=== PATIENT | male | born 1955 | race Caucasian/White ===

== ENCOUNTER 2017-10-22 12:13 | Inpatient (IN) | payer OTHER ==
[~2017-10-22] VITALS: Ht 175.3 cm; Wt 85.7 kg
[~2017-10-22 12:13] MED LIST: ASPI81TA11 PO; DEPA250T2 OR; FLUT1SPR9; GABA300C3 PO; METO25CR PO; PRED50TA PO
[2017-10-22 12:19] VITALS: BP 143/74; PULSE 81; RESP 18; TEMP 98.4; O2SAT 97
--- NOTE | 2017-10-22 12:51 | PD ---
HPI Chief Complaint: Head Injury Time Seen by Provider: 12:27 Travel History International Travel<30 days: No Contact w/Intl Traveler<30days: No Traveled to known affect area: No History of Present Illness HPI 62yo M with PMH of epilepsy on medication but does not know he is on here with multiple complaints. Pt is mainly here because he fell while trying to sit on a chair and hit his head at 7am today. Said he had LOC. Also has bleeding from left external ear. Pt said he has been feeling dizzy for a few days and it is more room spinning. Also said he has pain in both knees for over a week and his legs just gives out because of his pain and he just falls. Denies any fever, chest pain, sob, n/v, abdominal pain, back pain, focal weakness or numbness. PFSH Past Medical History Diminished Hearing: No Hypertension: Yes Immunizations Current: Yes Seizures: Yes (had one "long time ago" on meds) ?: Not Social History Alcohol Use: No Tobacco Use: Yes (2-3 PPD) Substance Use: No Allergies-Medications (Allergen,Severity, Reaction): Coded Allergies: No Known Allergies (Verified Allergy, Unknown, 10/22/17) Reported Meds & Prescriptions Reported Meds & Active Scripts Active Reported Aspirin Low Dose (Aspirin) 81 Mg Chew 81 Mg PO DAILY Divalproex DR (Divalproex Sodium) 250 Mg Tabdr 250 Mg PO TID Gabapentin 400 Mg Cap 400 Cap PO TID Metoprolol Tartrate 50 Mg Tab 50 Mg PO DAILY Review of Systems Except as stated in HPI: all other systems reviewed are Neg Physical Exam Narrative GENERAL: 62yo M not in distress. SKIN: Focused skin assessment warm/dry. HEAD: Atraumatic. Normocephalic. EYES: Pupils equal and round at 3mm bilaterally. EOMI. ENT: No hemotympanum. Left ear: +3cm laceration in left pinna. It is very superficial and well approximated. NECK: No cervical spine ttp. CARDIOVASCULAR: Regular rate and rhythm. No murmur appreciated. RESPIRATORY: No accessory muscle use. Clear to auscultation. GASTROINTESTINAL: Abdomen soft, non-tender, nondistended. MUSCULOSKELETAL: Left knee:FROM in knee. Sensation intact. Distal pulses intact. Right knee: FROM in knee. Sensation intact. Distal pulses intact. NEUROLOGICAL: AAOx2. No obvious cranial nerve deficits. Motor grossly within normal limits in all extremities. Sensation equal bilaterally. Normal speech. Data Data Last Documented VS Vital Signs Date Time Temp Pulse Resp B/P (MAP) Pulse Ox O2 Delivery O2 Flow Rate FiO2 10/22/17 17:20 16 10/22/17 15:45 70 132/78 (96) 98 Room Air 10/22/17 12:[address] Brain W/O Iv Contrast(Rout) (10/22/17 ) Complete Blood Count With Diff (10/22/17 12:40) Basic Metabolic Panel (Bmp) (10/22/17 12:40) Prothrombin Time / Inr (Pt) (10/22/17 12:40) Act Partial Throm Time (Ptt) (10/22/17 12:40) Electrocardiogram (10/22/17 ) Knee, Ltd (1 Or 2vws) (10/22/17 ) Knee, Ltd (1 Or 2vws) (10/22/17 ) Troponin I (10/22/17 12:51) Meclizine (Antivert) (10/22/17 13:00) Morphine Inj (Morphine Inj) (10/22/17 13:00) Lidocaine 1% Inj (Xylocaine 1% Inj) (10/22/17 13:00) Valproic Acid (Depakene) (10/22/17 12:57) Sodium Chlor 0.9% 1000 Ml Inj (Ns 1000 M (10/22/17 14:00) Mri Brain W&W/O Contrast (10/22/17 ) Gadodiamide Pf Inj (Omniscan Pf Inj) (10/22/17 16:15) Consult Neurology (10/22/17 ) (Hub Use Only)Inp Phy Cons/Ref (10/22/17 ) Urinalysis - C+S If Indicated (10/22/17 18:42) Place In Observation (10/22/17 ) Vital Signs (Adult) Q4H (10/22/17 18:42) Activity Oob With Assistance (10/22/17 18:42) Diet Regular Basic (10/22/17 Dinner) Sodium Chloride 0.9% Flush (Ns Flush) (10/22/17 18:45) Sodium Chloride 0.9% Flush (Ns Flush) (10/22/17 21:00) Acetaminophen (Tylenol) (10/22/17 18:45) Ondansetron Inj (Zofran Inj) (10/22/17 18:45) Basic Metabolic Panel (Bmp) (10/23/17 06:00) Complete Blood Count With Diff (10/23/17 06:00) Pt Request For Service (10/22/17 18:42) Naloxone Inj (Narcan Inj) (10/22/17 18:45) Osmolality, Urine (10/22/17 18:42) Osmolality,Serum (10/22/17 18:42) Sodium, Random Urine (10/22/17 18:42) Chest, Pa & Lat (10/22/17 ) Admit Order (Ed Use Only) (10/22/17 18:46) Labs Laboratory Tests Test 10/22/17 08:20 10/22/17 13:00 10/22/17 13:30 Troponin I 0.02 NG/ML White Blood Count 11.9 TH/MM3 Red Blood Count 4.94 MIL/MM3 Hemoglobin 15.4 GM/DL Hematocrit 45.8 % Mean Corpuscular Volume 92.6 FL Mean Corpuscular Hemoglobin 31.1 PG Mean Corpuscular Hemoglobin Concent 33.6 % Red Cell Distribution Width 13.6 % Platelet Count 242 TH/MM3 Mean Platelet Volume 7.2 FL Neutrophils (%) (Auto) 83.0 % Lymphocytes (%) (Auto) 11.7 % Monocytes (%) (Auto) 4.0 % Eosinophils (%) (Auto) 0.8 % Basophils (%) (Auto) 0.5 % Neutrophils # (Auto) 9.8 TH/MM3 Lymphocytes # (Auto) 1.4 TH/MM3 Monocytes # (Auto) 0.5 TH/MM3 Eosinophils # (Auto) 0.1 TH/MM3 Basophils # (Auto) 0.1 TH/MM3 CBC Comment DIFF FINAL Differential Comment Erythrocyte Sedimentation Rate 1 mm/hr Prothrombin Time 10.4 SEC Prothromb Time International Ratio 1.0 RATIO Activated Partial Thromboplast Time 25.7 SEC Blood Urea Nitrogen 3 MG/DL Creatinine 1.00 MG/DL Random Glucose 95 MG/DL Calcium Level 8.9 MG/DL Sodium Level 129 MEQ/L Potassium Level 4.7 MEQ/L Chloride Level 94 MEQ/L Carbon Dioxide Level 27.9 MEQ/L Anion Gap 7 MEQ/L Estimat Glomerular Filtration Rate 76 ML/MIN Thyroid Stimulating Hormone 3rd Gen 1.420 uIU/ML Valproic Acid (Depakene) Level 56 MCG/ML MDM Medical Decision Making Medical Screen Exam Complete: Yes Emergency Medical Condition: Yes Interpretation(s) EKG: NSR 78bpm. LAD. TWI aVL. ST depression II, V6. Differential Diagnosis ICH vs. contusion vs. laceration vs. vertigo vs. failure to thrive Narrative Course 62yo M with epilepsy here with c/o bleeding in left ear s/p fall today. Said he hit his head on the chair and had positive LOC. Denies any focal weakness or numbness. Complains of dizziness and bilateral knee pain and his knees giving out on him. Pt's sister arrive and said pt takes depakote and has been having this problem for 1 month now. Said his PMD ordered physical therapy and work up with neurology. Labs reviewed, WBC 11.9. H/H normal. Mild hyponatremia at 129, pt has had similar hyponatremia before. Pt given NS IVF. Troponin negative. Valproic acid therapeutic at 56. CT brain showed no focal or acute intracranial hemorrhage. There is diffuse enlargement of the ventricular system suggestive of hydrocephalus. Normal pressure hydrocephalus would be a consideration. No prior studies to compare. Recommend MRI of brain to further evaluate. I discussed with radiologist Dr. Lopez and suggested MRI brain with and without contrast. Bilateral xray of knee negative. Pt's sister said he seems more forgetful today but normally does not know year so he is AAOx2 normally. MRI brain showed ventricular dilation. No evidence of transependymal fluid migration. Pt has unsteady gait even on his cane and I try to walk him and he is unable to walk unassisted even with his cane. Pt lives by himself and his sister lives close by but she can barely take care of herself. I do not feel that this is a safe discharge and will place a consult for neurology. Left ear laceration well approximated and repair with dermabond. I initially called Dr. Ambrosio from neurology but have not heard back from him yet. I discussed with hospitalist Dr. Green who wanted me to call neurosurgery first to see if pt needs to be transfer. I discussed with Dr. Cardenas from neurosurgery and he said that pt needs a neurology work up first. Pt does not need a METER TECHNICIAN shunt now since there is no transependymal fluid migration. Dr. Ambrosio called back and request that I order MRI cspine and MRI t spine with and without contrast for tomorrow. Also ask that I order B12 level, TSH, T4, sed rate, methylmalonic acid. Critical Care Narrative Aggregate critical care time was 50 minutes. Time to perform other separately billable procedures was not included in the critical care time. My time did not include minutes spent treating any other patients simultaneously or on activities that did not directly contribute to the patient's treatment. The services I provided to this patient were to treat and/or prevent clinically significant deterioration that could result in: cardiovascular collapse or . I provided critical care services requiring my management, as noted below: Chart data review, documentation time, medication orders and management, vital sign assessments/reviewing monitor data, ordering and reviewing lab tests, ordering and interpreting/reviewing x-rays and diagnostic studies, care of the patient and discussion of the patient with the admitting physicians. Procedures Procedure Narrative LACERATION LOCATION: Left ear LENGTH: 3cm NUMBER OF STITCHES/ORESTES: Dermabond. REPAIR: The wound was copiously irrigated and explored without evidence of foreign body, tendon injury or neurovascular injury. The wound was closed using Dermabond. This was a single layer repair. Patient tolerated the procedure well. Diagnosis Primary Impression: Ventricular dilation Admitting Information Admitting Physician Requests: Heaven Hammonds DO Oct 22, 2017 12:50
[2017-10-22] MEDS ORDERED: MECLIZINE HCL 25 MG TAB PO ONE (13:00)
[2017-10-22] MEDS ORDERED: MORPHINE SULFATE 2 MG/ML INJ IV PUSH ONE (13:00)
[2017-10-22] MEDS ORDERED: LIDOCAINE HCL 1% 20 ML VIAL INFIL ONE (13:00)
--- NOTE | 2017-10-22 13:11 | RADRPT ---
EXAM DATE/TIME: 10/22/2017 12:53 [facility] COMPARISON: No previous studies available for comparison. INDICATIONS : Trauma. Fall. Hit head. RADIATION DOSE: 59.74 CTDIvol (mGy) MEDICAL HISTORY : Seizures. Hypertension. SURGICAL HISTORY : None. ENCOUNTER: Initial ACUITY: 1 day PAIN SCALE: 2/10 LOCATION: Left cranial TECHNIQUE: Multiple contiguous axial images were obtained of the head. Using automated exposure control and adj ustment of the mA and/or kV according to patient size, radiation dose was kept as low as reasonably a chievable to obtain optimal diagnostic quality images. DICOM format image data is available electro nically for review and comparison. FINDINGS: CEREBRUM: The ventricles are prominent for age. No evidence of midline shift, mass lesion, hemorrhage or acute infarction. No extra-axial fluid collections are seen. POSTERIOR FOSSA: The cerebellum and brainstem are intact. The 4th ventricle is midline. The cerebellopontine angle i s unremarkable. EXTRACRANIAL: The visualized portion of the orbits is intact. SKULL: The calvaria is intact. No evidence of skull fracture. CONCLUSION: 1. No focal or acute intracranial hemorrhage. 2. There is diffuse enlargement of the ventricular system suggestive of hydrocephalus. Normal pressur e hydrocephalus would be a consideration. There are no prior studies for comparison. Recommend MRI of the brain for further evaluation. Mike Lopez MD on October 22, 2017 at 13:08 Board Certified Radiologist. This report was verified electronically.
--- NOTE | 2017-10-22 13:17 | RADRPT ---
EXAM DATE/TIME: 10/22/2017 12:56 [facility] COMPARISON: No previous studies available for comparison. INDICATIONS : Right knee pain; fall. MEDICAL HISTORY : None. SURGICAL HISTORY : None. ENCOUNTER: Initial ACUITY: 1 day PAIN SCORE: 3/10 LOCATION: Right knee. FINDINGS: Two view examination of the right knee demonstrates no evidence of fracture or dislocation. Bony min eralization is normal. The suprapatellar soft tissues have a normal configuration. There are vascula r calcifications characteristic of PVD. No evidence of joint effusion. CONCLUSION: No acute fracture or joint dislocation. Mike Lopez MD on October 22, 2017 at 13:15 Board Certified Radiologist. This report was verified electronically.
--- NOTE | 2017-10-22 13:18 | RADRPT ---
EXAM DATE/TIME: 10/22/2017 12:56 [facility] COMPARISON: No previous studies available for comparison. INDICATIONS : Left knee pain; fall. MEDICAL HISTORY : None. SURGICAL HISTORY : None. ENCOUNTER: Initial ACUITY: 1 day PAIN SCORE: 3/10 LOCATION: Left knee. FINDINGS: Two view examination of the left knee demonstrates no evidence of fracture or dislocation. Bony mine ralization is normal. The suprapatellar soft tissues have a normal configuration. No evidence of ravindra nt effusion. Vascular calcifications characteristic of PVD. CONCLUSION: No acute fracture or joint dislocation. Mike Lopez MD on October 22, 2017 at 13:16 Board Certified Radiologist. This report was verified electronically.
[2017-10-22 13:40] LABS: AUTOMATED NEUTROPHIL # 9.8 TH/MM3 (1.8-7.7); BASOPHIL # 0.1 TH/MM3 (0-0.2); BASOPHIL % 0.5 % (0.0-2.0); EOSINOPHIL # 0.1 TH/MM3 (0-0.4); EOSINOPHIL % 0.8 % (0.0-4.0); HEMATOCRIT 45.8 % (39.0-51.0); HEMOGLOBIN 15.4 GM/DL (13.0-17.0); LYMPH % 11.7 % (9.0-44.0); LYMPHOCYTE # 1.4 TH/MM3 (1.0-4.8); MEAN CELL VOLUME 92.6 FL (80.0-100.0); MEAN CORPUSCULAR HEMOGLOBIN 31.1 PG (27.0-34.0); MEAN CORPUSCULAR HGB CONC 33.6 % (32.0-36.0); MEAN PLATELET VOLUME 7.2 FL (7.0-11.0); MONOCYTE # 0.5 TH/MM3 (0-0.9); PLATELET COUNT 242 TH/MM3 (150-450); RED BLOOD COUNT 4.94 MIL/MM3 (4.50-5.90); RED CELL DISTRIBUTION WIDTH 13.6 % (11.6-17.2); WHITE BLOOD COUNT 11.9 TH/MM3 (4.0-11.0)
[2017-10-22 13:51] LABS: CALCIUM 8.9 MG/DL (8.5-10.1)
[2017-10-22 13:52] LABS: BICARBONATE 27.9 MEQ/L (21.0-32.0)
[2017-10-22 13:53] LABS: PROTHROMBIN TIME - PATIENT 10.4 SEC (9.8-11.6)
[2017-10-22] MEDS ORDERED: SODIUM CHLOR 0.9% 1000 ML INJ 1,000 ML IV ONE (14:00)
[2017-10-22] MEDS ORDERED: METO50TA PO (14:05)
[2017-10-22] MEDS ORDERED: GABA400C5 PO (14:05)
[2017-10-22] MEDS ORDERED: DIVA250T PO (14:05)
[2017-10-22] MEDS ORDERED: ASPI81CH6 PO (14:19)
[2017-10-22 14:30] VITALS: BP 138/84; PULSE 82; RESP 18; O2SAT 97
[2017-10-22 15:45] VITALS: BP 132/78; PULSE 70; RESP 18; O2SAT 98
[2017-10-22] MEDS ORDERED: GADODIAMIDE PF 287 MG/ML 20 ML VIAL (for RAD MRI) IVCONTRAST ONE (16:15)
--- NOTE | 2017-10-22 17:32 | RADRPT ---
EXAM DATE/TIME: 10/22/2017 15:57 [facility] COMPARISON: CT BRAIN W/O CONTRAST, October 22, 2017, 12:53. INDICATIONS : Hydrocephalus. Trauma fell and hit head. CONTRAST: 18 cc Omniscan (gadodiamide) IV MEDICAL HISTORY : Hypertension. Seizures. SURGICAL HISTORY : None. ENCOUNTER: Initial ACUITY: 1 day PAIN SCORE: 5/10 LOCATION: Head TECHNIQUE: Multiplanar, multisequence MRI of the brain was performed both prior to and following the administrat ion of paramagnetic contrast. FINDINGS: CEREBRUM: The ventricular system is dilated. There is no evidence of transependymal fluid migration. There is m ild cortical atrophy. No mass lesion is identified. WHITE MATTER: No significant signal abnormalities are seen in the white matter. POSTERIOR FOSSA: The cerebellum and brainstem are intact. The 4th ventricle is midline. The fourth ventricle is mildl y dilated as well The cerebellopontine angle is unremarkable. The cerebellar tonsils are normal in p osition. DIFFUSION IMAGING: No focal areas of restricted diffusion are seen. No evidence of acute infarction. EXTRACRANIAL: The visualized portions of the orbits and paranasal sinuses are unremarkable. POST-CONTRAST: No abnormal areas of parenchymal or dural enhancement. No evidence of blood-brain barrier breakdown. CONCLUSION: 1. There is ventricular dilation. There is no evidence of transependymal fluid migration. There is on ly mild cortical atrophy. Brody Anne MD on October 22, 2017 at 17:05 Board Certified Radiologist. This report was verified electronically.
[2017-10-22] MEDS ORDERED: ONDANSETRON HCL 4 MG/2 ML VIAL IVP PRN (18:45)
[2017-10-22] MEDS ORDERED: ACETAMINOPHEN 325 MG TAB PO PRN (18:45)
[2017-10-22] MEDS ORDERED: SODIUM CHLORIDE 0.9% FLUSH 10 ML FLUSH IV FLUSH PRN (18:45)
[2017-10-22] MEDS ORDERED: NALOXONE HCL 0.4 MG/ML AMP IV PUSH PRN (18:45)
[2017-10-22 18:54] VITALS: BP 136/78; PULSE 71; RESP 17; O2SAT 99
--- NOTE | 2017-10-22 19:43 | RADRPT ---
EXAM DATE/TIME: 10/22/2017 18:52 [facility] COMPARISON: No previous studies available for comparison. INDICATIONS : Syncopal episode today. MEDICAL HISTORY : Hypertension. SURGICAL HISTORY : None. ENCOUNTER: Initial ACUITY: 1 day PAIN SCORE: 0/10 LOCATION: Bilateral chest FINDINGS: PA and lateral views of the chest demonstrate the lungs to be symmetrically aerated without evidence of mass, infiltrate or effusion. Mild basilar atelectasis. The cardiomediastinal contours are unremar kable. Osseous structures are intact. CONCLUSION: Bibasilar opacity, possibly atelectasis. No effusion or pneumothorax. Hugh Banda MD on October 22, 2017 at 19:40 Board Certified Radiologist. This report was verified electronically.
[2017-10-22 20:27] VITALS: BP 140/74; PULSE 78; RESP 18; O2SAT 100
[2017-10-22 20:41] LABS: BILIRUBIN, URINE NEG (NEG); BLOOD, URINE NEG (NEG); GLUCOSE,URINE NEG (NEG); KETONE, URINE NEG (NEG); NITRITE,URINE NEG (NEG); URINE COLOR YELLOW (YELLW/STRAW); URINE LEUKOCYTE ESTERASE NEG (NEG)
[2017-10-22 20:49] LABS: SQUAMOUS EPITHELIAL CELL URINE 0-5 /hpf (0-5)
[2017-10-22] MEDS: SODIUM CHLORIDE 0.9% FLUSH 10 ML FLUSH IV FLUSH SCH (21:07)
[2017-10-22 22:10] VITALS: BP 143/83; PULSE 73; RESP 18; O2SAT 100
[2017-10-22 22:34] LABS: SODIUM,RANDOM URINE 67 MEQ/L
[2017-10-22 23:06] LABS: FREE T4 0.92 NG/DL (0.76-1.46)
[2017-10-22 23:45] LABS: OSMOLALITY,URINE 260 MOSM/KG (300-1300)
[2017-10-23] VITALS: BP 128/78; PULSE 77; RESP 21; TEMP 98.1; O2SAT 95
[2017-10-23 05:16] LABS: BASOPHIL # 0.1 TH/MM3 (0-0.2); BASOPHIL % 0.6 % (0.0-2.0); EOSINOPHIL # 0.2 TH/MM3 (0-0.4); EOSINOPHIL % 1.9 % (0.0-4.0); HEMATOCRIT 43.9 % (39.0-51.0); HEMOGLOBIN 14.4 GM/DL (13.0-17.0); LYMPH % 24.9 % (9.0-44.0); LYMPHOCYTE # 2.3 TH/MM3 (1.0-4.8); MEAN CELL VOLUME 92.7 FL (80.0-100.0); MEAN CORPUSCULAR HEMOGLOBIN 30.5 PG (27.0-34.0); MEAN CORPUSCULAR HGB CONC 32.9 % (32.0-36.0); MEAN PLATELET VOLUME 7.6 FL (7.0-11.0); MONO % 7.5 % (0.0-8.0); MONOCYTE # 0.7 TH/MM3 (0-0.9); NEUT % 65.1 % (16.0-70.0); PLATELET COUNT 209 TH/MM3 (150-450); RED BLOOD COUNT 4.73 MIL/MM3 (4.50-5.90); RED CELL DISTRIBUTION WIDTH 13.7 % (11.6-17.2); WHITE BLOOD COUNT 9.3 TH/MM3 (4.0-11.0)
[2017-10-23 05:45] LABS: BICARBONATE 26.1 MEQ/L (21.0-32.0); CALCIUM 8.8 MG/DL (8.5-10.1); CREATININE 0.95 MG/DL (0.60-1.30)
[2017-10-23 08:00] VITALS: BP 157/70; PULSE 67; RESP 20; TEMP 96.9; O2SAT 93
[2017-10-23] MEDS: SODIUM CHLORIDE 0.9% FLUSH 10 ML FLUSH IV FLUSH SCH ×2 (08:30→22:26)
--- NOTE | 2017-10-23 10:21 | MB ---
cc: Ghassan Garcia MD DATE: 10/23/2017 HISTORY OF PRESENT ILLNESS: This is a 62-year-old seen in neurological consultation in regards to inability to walk. He admits to a history of epilepsy since childhood, but the last seizure was a long time ago. He describes that in the past week or so he has been having difficulty with his gait. He starts walking and after a couple of minutes, he has to hold on to his brother in order to walk and he just seems to be weak and he has been using a cane as well. He is just unable to walk much. He admits to some other nonspecific complaints. There is some dizziness. He denies any problems with bladder control. MEDICATIONS: Listed as baby aspirin, Valproex, sodium 250 three times a day, gabapentin 400 three times a day, metoprolol 50 daily. NEUROLOGIC EXAM: The exam showed the patient to be awake, alert, and oriented. No obvious distress. Ocular movements and visual herman full. No facial weakness. No tongue injury. Muscle stretch reflexes were trace versus absent response throughout. Plantar responses were flexor. He did resist reasonably well overall on the bedside exam. Pulses preserved quite well in both anterior C2 regions. An MRI of the brain shows ventricular dilatation, but no transependymal fluid migration. CBC is normal. Sedimentation rate 1. Valproic level 56. Sodium 129 yesterday 133 today. Otherwise, chemistry is unremarkable. ASSESSMENT AND PLAN: I had a long history of epilepsy, but his complaint now is difficulty walking especially after walking a short course. This raises the possibility of a severe lumbar spinal stenosis as he seems to have good pulses in both distal lower extremities, therefore vascular claudication is unlikely. I will order an MRI of the lumbosacral spine and follow the neurological course. Thank you for asking us to assist in his care. Ghassan Garcia MD OFC/DL , 09:43 AM , 10:20 AM
[2017-10-23 12:00] VITALS: BP 136/74; PULSE 89; RESP 20; TEMP 96.8; O2SAT 97
--- NOTE | 2017-10-23 12:17 | HHI.HP ---
[facility] Carlyle Lu DO Admission Diagnosis Normal pressure hydrocephalus Diagnoses: Chief Complaint: Fall at home Travel History International Travel<30 Days: No Contact w/Intl Traveler <30 Da: No Traveled to Known Affected Are: No History of Present Illness This patient is a 62-year-old gentleman with history of epilepsy who comes to the hospital because he fell at home with some loss of consciousness. He has been dizzy for the last few days and reported some generalized weakness. He came to the emergency room this family was found to have hyponatremia and rhabdomyolysis which appears to improve overnight with hydration intravenously. There have been no recent changes in medications and has been on his antibiotics for several years. He follows around with his primary care doctor. He has not had any chest pain or shortness of breath. He is still quite ataxic. Patient's been recommended for further evaluation due to frequent falls. Initially his CT of the head was concerning for normal pressure hydrocephalus. ER MD however repeat MRI not consistent with this. Review of Systems Constitutional: DENIES: Diaphoretic episodes, Fatigue, Fever, Weight gain, Weight loss, Chills, Dizziness, Change in appetite, Night Sweats Endocrine: DENIES: Heat/cold intolerance, Polydipsia, Polyuria, Polyphagia Eyes: DENIES: Blurred vision, Diplopia, Eye inflammation, Eye pain, Vision loss , Photosensitivity, Double Vision Ears, nose, mouth, throat: DENIES: Tinnitus, Hearing loss, Vertigo, Nasal discharge, Oral lesions, Throat pain, Hoarseness, Ear Pain, Running Nose, Epistaxis, Sinus Pain, Toothache, Odynophagia Respiratory: DENIES: Apneas, Cough, Snoring, Wheezing, Hemoptysis, Sputum production, Shortness of breath Cardiovascular: DENIES: Chest pain, Palpitations, Syncope, Dyspnea on Exertion , PND, Lower Extremity Edema, Orthopnea, Claudication Gastrointestinal: DENIES: Abdominal pain, Black stools, Bloody stools, Constipation, Diarrhea, Nausea, Vomiting, Difficulty Swallowing, Anorexia Musculoskeletal: COMPLAINS OF: Joint pain, Back pain, DENIES: Muscle aches, Stiffness, Joint Swelling, Neck pain Integumentary: DENIES: Abnormal pigmentation, Nail changes, Pruritus, Rash Hematologic/lymphatic: DENIES: Bruising, Lymphadenopathy Immunologic/allergic: DENIES: Eczema, Urticaria Neurologic: COMPLAINS OF: Abnormal gait, Poor Balance, DENIES: Headache, Localized weakness, Paresthesias, Seizures, Speech Problems, Tremor Past Family Social History Past Medical History History of epilepsy Hypertension Past Surgical History Denies Reported Medications Reviewed in the EMR Allergies: Coded Allergies: No Known Allergies (Verified Allergy, Unknown, 10/22/17) Active Ordered Medications Reviewed in the EMR Family History Family history of hypertension Social History No alcohol dependency Tobacco half a pack a day Physical Exam Vital Signs Vital Signs Date Time Temp Pulse Resp B/P (MAP) Pulse Ox O2 Delivery O2 Flow Rate FiO2 10/23/17 08:00 96.9 67 20 157/70 (99) 93 10/23/17 00:00 98.1 77 21 128/78 (95) 95 10/22/17 22:25 10/22/17 22:10 73 18 143/83 (103) 100 Room Air 10/22/17 21:00 70 18 Room Air 100 10/22/17 20:27 78 18 140/74 (96) 100 Room Air 10/22/17 18:54 71 17 136/78 (97) 99 Room Air 10/22/17 17:20 16 10/22/17 15:45 70 18 132/78 (96) 98 Room Air 10/22/17 14:30 82 18 138/84 (102) 97 Room Air 10/22/17 13:10 Room Air 10/22/17 12:19 98.4 81 18 143/74 (97) 97 Physical Exam GENERAL: This is a well-nourished, well-developed but generally unkempt SKIN: No rashes, ecchymoses or lesions. Cool and dry. HEAD: Atraumatic. Normocephalic. No temporal or scalp tenderness. EYES: Pupils equal round and reactive. Extraocular motions intact. No scleral icterus. No injection or drainage. ENT: Nose without bleeding, purulent drainage or septal hematoma. Throat without erythema, tonsillar hypertrophy or exudate. Uvula midline. Airway patent. NECK: Trachea midline. No JVD or lymphadenopathy. Supple, nontender, no meningeal signs. CARDIOVASCULAR: Regular rate and rhythm without murmurs, gallops, or rubs. RESPIRATORY: Clear to auscultation. Breath sounds equal bilaterally. No wheezes , rales, or rhonchi. GASTROINTESTINAL: Abdomen soft, non-tender, nondistended. No hepato-splenomegaly , or palpable masses. No guarding. MUSCULOSKELETAL: Extremities without clubbing, cyanosis, or edema. No joint tenderness, effusion, or edema noted. No calf tenderness. Negative Homans sign bilaterally. NEUROLOGICAL: Awake and alert. Ataxic Laboratory Laboratory Tests Test 10/22/17 13:00 10/22/17 13:30 10/22/17 20:30 10/23/17 04:45 Troponin I 0.02 White Blood Count 11.9 9.3 Red Blood Count 4.94 4.73 Hemoglobin 15.4 14.4 Hematocrit 45.8 43.9 Mean Corpuscular Volume 92.6 92.7 Mean Corpuscular Hemoglobin 31.1 30.5 Mean Corpuscular Hemoglobin Concent 33.6 32.9 Red Cell Distribution Width 13.6 13.7 Platelet Count 242 209 Mean Platelet Volume 7.2 7.6 Neutrophils (%) (Auto) 83.0 65.1 Lymphocytes (%) (Auto) 11.7 24.9 Monocytes (%) (Auto) 4.0 7.5 Eosinophils (%) (Auto) 0.8 1.9 Basophils (%) (Auto) 0.5 0.6 Neutrophils # (Auto) 9.8 6.0 Lymphocytes # (Auto) 1.4 2.3 Monocytes # (Auto) 0.5 0.7 Eosinophils # (Auto) 0.1 0.2 Basophils # (Auto) 0.1 0.1 CBC Comment DIFF FINAL DIFF FINAL Differential Comment Erythrocyte Sedimentation Rate 1 Prothrombin Time 10.4 Prothromb Time International Ratio 1.0 Activated Partial Thromboplast Time 25.7 Blood Urea Nitrogen 3 4 Creatinine 1.00 0.95 Random Glucose 95 96 Calcium Level 8.9 8.8 Sodium Level 129 133 Potassium Level 4.7 3.7 Chloride Level 94 97 Carbon Dioxide Level 27.9 26.1 Anion Gap 7 10 Estimat Glomerular Filtration Rate 76 81 Vitamin B12 Level 880 Free Thyroxine 0.92 Thyroid Stimulating Hormone 3rd Gen 1.420 Valproic Acid (Depakene) Level 56 Urine Color YELLOW Urine Turbidity CLEAR Urine pH 7.0 Urine Specific [place] LESS/EQUAL 1.005 Urine Protein NEG Urine Glucose (UA) NEG Urine Ketones NEG Urine Occult Blood NEG Urine Nitrite NEG Urine Bilirubin NEG Urine Urobilinogen 0.2 Urine Leukocyte Esterase NEG Urine Squamous Epithelial Cells 0-5 Microscopic Urinalysis Comment CULT NOT INDICATED Urine Osmolality 260 Urine Random Sodium 67 Total Creatine Kinase 318 Creatine Kinase MB 5.6 Creatine Kinase MB % 1.8 Result Diagram: 10/23/175 10/23/175 Imaging Last Impressions Knee X-Ray 10/22/17 0000 Signed Impressions: Service Date/Time: October 12:56 - CONCLUSION: No acute fracture or joint dislocation. Mike Lopez MD Head CT 10/22/17 0000 Signed Impressions: Service Date/Time: October 12:53 - CONCLUSION: 1. No focal or acute intracranial hemorrhage. 2. There is diffuse enlargement of the ventricular system suggestive of hydrocephalus. Normal pressure hydrocephalus would be a consideration. There are no prior studies for comparison. Recommend MRI of the brain for further evaluation. Mike Lopez MD Chest X-Ray 10/22/17 0000 Signed Impressions: Service Date/Time: October 18:52 - CONCLUSION: Bibasilar opacity, possibly atelectasis. No effusion or pneumothorax. Hugh Banda MD Brain MRI 10/22/17 0000 Signed Impressions: Service Date/Time: October 15:57 - CONCLUSION: 1. There is ventricular dilation. There is no evidence of transependymal fluid migration. There is only mild cortical atrophy. Brody Anne MD Septic Shock Reassessment Septic shock perfusion: reassessment completed Caprini VTE Risk Assessment Caprini VTE Risk Assessment: Mod/High Risk (score >= 2) VTE Pharm Contraindication: Coagulopathy,INR elevated Caprini Risk Assessment Model Point Value = 1 Point Value = 2 Point Value = 3 Point Value = 5 Age 41-60 Minor surgery BMI > 25 kg/m2 Swollen legs Varicose veins or History of unexplained or recurrent spontaneous Oral contraceptives or hormone replacement Sepsis (< 1 month) Serious lung disease, including pneumonia (< 1 month) Abnormal pulmonary function Acute myocardial infarction Congestive heart failure (< 1 month) History of inflammatory bowel disease Medical patient at bed rest Age 61-74 Arthroscopic surgery Major open surgery (> 45 min) Laparoscopic surgery (> 45 min) Malignancy Confined to bed (> 72 hours) Immobilizing plaster cast Central venous access Age >= 75 History of VTE Family history of VTE Factor V Leiden Prothrombin [id number] Lupus anticoagulant Anticardiolipin antibodies Elevated serum homocysteine Heparin-induced thrombocytopenia Other congenital or acquired thrombophilia Stroke (< 1 month) Elective arthroplasty Hip, pelvis, or leg fracture Acute spinal cord injury (< 1 month) Prophylaxis Regimen Total Risk Factor Score Risk Level Prophylaxis Regimen 0-1 Low Early ambulation 2 Moderate Order ONE of the following: *Sequential Compression Device (SCD) *Heparin 5000 units SQ BID 3-4 Higher Order ONE of the following medications: *Heparin 5000 units SQ TID *Enoxaparin/Lovenox 40 mg SQ daily (WT < 150 kg, CrCl > 30 mL/min) *Enoxaparin/Lovenox 30 mg SQ daily (WT < 150 kg, CrCl > 10-29 mL/min) *Enoxaparin/Lovenox 30 mg SQ BID (WT < 150 kg, CrCl > 30 mL/min) AND/OR *Sequential Compression Device (SCD) 5 or more Highest Order ONE of the following medications: *Heparin 5000 units SQ TID (Preferred with Epidurals) *Enoxaparin/Lovenox 40 mg SQ daily (WT < 150 kg, CrCl > 30 mL/min) *Enoxaparin/Lovenox 30 mg SQ daily (WT < 150 kg, CrCl > 10-29 mL/min) *Enoxaparin/Lovenox 30 mg SQ BID (WT < 150 kg, CrCl > 30 mL/min) AND *Sequential Compression Device (SCD) Assessment and Plan Problem List: (1) Falls frequently ICD Code: R29.6 - Repeated falls Plan: With ataxia Workup in progress, lumbar stenosis eval and process Neurology consult appreciated (2) Seizure ICD Code: R56.9 - Unspecified convulsions Plan: Patient on Neurontin and valproic acid which we will continue (3) Hyponatremia ICD Code: E87.1 - Hypo-osmolality and hyponatremia Plan: Probably dehydrated Improved her hydration (4) Leukocytosis ICD Code: D72.829 - Elevated white blood cell count, unspecified Plan: Likely volume contracted No evidence of infection at this time Resolved (5) Rhabdomyolysis ICD Code: M62.82 - Rhabdomyolysis Plan: Probably secondary to follow We will follow repeat CPK in a.m. Physician Certification 2 Midnight Certification Type: Admission for Inpatient Services Order for Inpatient Services The services are ordered in accordance with Medicare regulations or non- Medicare payer requirements, as applicable. In the case of services not specified as inpatient-only, they are appropriately provided as inpatient services in accordance with the 2-midnight benchmark. Estimated LOS (days): 3 3 days is the estimated time the patient will need to remain in the hospital, assuming treatment plan goals are met and no additional complications. Post-Hospital Plan: Home Migdalia Green MD Oct 23, 2017 12:17
[2017-10-23] MEDS: ASPIRIN 81 MG CHEW TAB PO SCH (12:41)
[2017-10-23] MEDS: METOPROLOL TARTRATE 50 MG TAB PO SCH (12:41)
[2017-10-23] MEDS: GABAPENTIN 400 MG CAP PO SCH ×2 (12:41→17:34)
[2017-10-23] MEDS ORDERED: LORazepam 2 MG/ML VIAL IV PUSH ONE (13:45)
--- NOTE | 2017-10-23 14:42 | RADRPT ---
EXAM DATE/TIME: 10/23/2017 13:15 [facility] COMPARISON: No previous studies available for comparison. INDICATIONS : Claudication. Pain and frequent falls. MEDICAL HISTORY : None. SURGICAL HISTORY : None. ENCOUNTER: Initial ACUITY: 1 day PAIN SCORE: 4/10 LOCATION: Back. TECHNIQUE: Multiplanar multisequence MRI of the lumbar spine was performed without contrast. FINDINGS: The most caudal appearing lumbar vertebra is numbered as L5. Moderate motion artifact is present. There is no obvious cord compression. Subtle medullary a bnormality cannot be excluded. T12-L1: Mild interspace ridging otherwise negative L1-L2: Central to right-sided disc bulge with encroachment on the right L1 root L2-L3: Moderate facet disease also has spinal stenosis L3-L4: Moderate facet disease with mild spinal stenosis L4-L5: Generalized disc bulging with moderate facet disease. Mild spinal stenosis. Moderate bilateral neur al foramen encroachment L5-S1: Mild facet disease SI joints are normal CONCLUSION: Significant motion artifact is present in the congenitally small spinal canal Central to right-sided right-sided disc bulge L1-2 Moderate facet disease throughout the spine. Congenitally small spinal canal.. Giorgio nAne MD FACR on October 23, 2017 at 14:35 Board Certified Radiologist. This report was verified electronically.
[2017-10-23] MEDS: DIVALPROEX SODIUM DELAYED RELEASE 250 MG TAB PO SCH ×2 (15:21→17:34)
--- NOTE | 2017-10-23 15:27 | RADRPT ---
EXAM DATE/TIME: 10/23/2017 13:15 [facility] COMPARISON: No previous studies available for comparison. INDICATIONS : Pain. Frequent falls. MEDICAL HISTORY : None. SURGICAL HISTORY : None. ENCOUNTER: Initial ACUITY: 1 day PAIN SCORE: 6/10 LOCATION: Back. TECHNIQUE: Multiplanar, multisequence MRI examination of the cervical spine was performed. FINDINGS: Extensive motion artifact is present. Quality is severely limited. There is moderate spinal stenosis at the C5-C6 and C6-C7 level. CONCLUSION: Mild spinal stenosis worse at C6-C7.. Giorgio Anne MD FACR on October 23, 2017 at 15:23 Board Certified Radiologist. This report was verified electronically.
[2017-10-23 16:00] VITALS: BP 142/77; PULSE 84; RESP 20; TEMP 97; O2SAT 96
--- NOTE | 2017-10-23 16:12 | RADRPT ---
EXAM DATE/TIME: 10/23/2017 13:15 [facility] COMPARISON: No previous studies available for comparison. INDICATIONS : Pain. Frequent falls. MEDICAL HISTORY : None. SURGICAL HISTORY : None. ENCOUNTER: Initial ACUITY: 1 day PAIN SCORE: 6/10 LOCATION: Back. TECHNIQUE: Multiplanar multisequence MRI of the thoracic spine was performed. FINDINGS: Examination is limited by motion artifact. VERTEBRA: Normal vertebral body height. Homogeneous marrow signal. ALIGNMENT: Sagittal alignment is maintained. CORD: Normal position and configuration. T1-T2: Normal. T2-T3: The thecal sac has a normal diameter. No evidence of disc bulge or protrusion. T3-T4: The thecal sac has a normal diameter. No evidence of disc bulge or protrusion. T4-T5: The thecal sac has a normal diameter. No evidence of disc bulge or protrusion. T5-T6: The thecal sac has a normal diameter. No evidence of disc bulge or protrusion. T6-T7: The thecal sac has a normal diameter. No evidence of disc bulge or protrusion. T7-T8: Right paracentral disc osteophytes with mild effacement of the right anterolateral recess and mild to moderate right neural foraminal narrowing. T8-T9: Mild right paracentral osteophytes without significant central canal or neural foraminal narrowing. T9-T10: The thecal sac has a normal diameter. No evidence of disc bulge or protrusion. T10-T11: The thecal sac has a normal diameter. No evidence of disc bulge or protrusion. T11-T12: Mild diffuse disc bulge and bilateral facet arthropathy. Mild resultant central canal narrowing. No s ignificant neural foraminal stenosis. T12-L1: The thecal sac has a normal diameter. No evidence of disc bulge or protrusion. CONCLUSION: 1. No acute compression fractures or subluxation as questioned. 2. Mild degenerative spondylosis of the thoracic spine most prominently at T7-8 and T11-12 without si gnificant central canal or neural foraminal stenosis. Alfredo Castillo MD on October 23, 2017 at 16:00 Board Certified Radiologist. This report was verified electronically.
[2017-10-23 20:00] VITALS: BP 151/76; PULSE 70; RESP 20; TEMP 96.8; O2SAT 98
--- NOTE | 2017-10-23 20:01 | EKG ---
Date Performed: 10/22/2017 Time Performed: 12:48:45 PTAGE: 62 years EKG: Sinus rhythm MARKED LEFT AXIS DEVIATION LEFT VENTRICULAR HYPERTROPHY AND ST-T CHANGE Since previous tracing, no s ignificant change noted ABNORMAL ECG PREVIOUS TRACING : 10/13/2010 09.39 DOCTOR: Geraldo Vaca Interpretating Date/Time 10/23/2017 19:57:09
[2017-10-24] VITALS: BP 157/80; PULSE 68; RESP 20; TEMP 96.9; O2SAT 97
[2017-10-24 08:00] VITALS: BP 144/73; PULSE 77; RESP 16; O2SAT 94
[2017-10-24] MEDS: SODIUM CHLORIDE 0.9% FLUSH 10 ML FLUSH IV FLUSH SCH (08:22)
[2017-10-24] MEDS: ASPIRIN 81 MG CHEW TAB PO SCH (08:23)
[2017-10-24] MEDS: GABAPENTIN 400 MG CAP PO SCH ×2 (08:23→14:27)
[2017-10-24] MEDS: DIVALPROEX SODIUM DELAYED RELEASE 250 MG TAB PO SCH ×2 (08:23→14:28)
[2017-10-24] MEDS: METOPROLOL TARTRATE 50 MG TAB PO SCH (08:23)
[2017-10-24] MEDS ORDERED: SODIUM CHLOR 0.9% 1000 ML INJ 1,000 ML IV SCH (10:00)
[2017-10-24] MEDS ORDERED: BACITRACIN TOP OINT 15 GM TUBE TOPICAL SCH (10:00)
--- NOTE | 2017-10-24 10:04 | HHI.PR ---
Subjective Remarks Patient seen in follow-up for weakness Improved CPK elevated today Continue IV fluids for rhabdo Objective Vitals Vital Signs Date Time Temp Pulse Resp B/P (MAP) Pulse Ox O2 Delivery O2 Flow Rate FiO2 10/24/17 08:00 77 16 144/73 (96) 94 10/24/17 00:00 96.9 68 20 157/80 (105) 97 10/23/17 20:00 96.8 70 20 151/76 (101) 98 10/23/17 16:00 97.0 84 20 142/77 (98) 96 10/23/17 12:00 96.8 89 20 136/74 (94) 97 I/O 10/23/17 10/23/17 10/23/17 10/24/17 10/24/17 10/24/17 06:59 14:59 22:59 06:59 14:59 22:59 Intake Total 240 ml Output Total 600 ml Balance -600 ml 240 ml Intake Oral 240 ml Output Urine Total 600 ml # Voids 3 Result Diagram: 10/23/1744410/23/17444 Objective Remarks left ear bleeding stopped GENERAL: This is a well-nourished, well-developed patient, in no apparent distress. CARDIOVASCULAR: Regular rate and rhythm without murmurs, gallops, or rubs. RESPIRATORY: Clear to auscultation. Breath sounds equal bilaterally. No wheezes , rales, or rhonchi. GASTROINTESTINAL: Abdomen soft, non-tender, nondistended. Normal active bowel sounds MUSCULOSKELETAL: Extremities without clubbing, cyanosis, or edema. NEURO: Alert & Oriented x4 to person, place, time, situation. Moves all ext x4 A/P Problem List: (1) Falls frequently ICD Code: R29.6 - Repeated falls (2) Seizure ICD Code: R56.9 - Unspecified convulsions Plan: Patient on Neurontin and valproic acid which we will continue (3) Hyponatremia ICD Code: E87.1 - Hypo-osmolality and hyponatremia Plan: Improved (4) Leukocytosis ICD Code: D72.829 - Elevated white blood cell count, unspecified Plan: Resolved (5) Rhabdomyolysis ICD Code: M62.82 - Rhabdomyolysis Plan: Continue IV hydration and follow CPK in a.m. Discharge Planning Discharge in a.m. if CPK improved Migdalia Green MD Oct 24, 2017 10:04
[2017-10-24] MEDS ORDERED: WALKER WHEELS/F1 MIS (10:49)
--- NOTE | 2017-10-24 10:49 | HHI.FF ---
Face to Face Verification Diagnosis: (1) Falls frequently (2) Rhabdomyolysis Physical Therapy Order: Evaluate and Treat, Improve ambulation Occupational Therapy Order: Evaluate and Treat, Gross motor coordination Home Health Nursing Order: Medical education I have seen patient Jordy Banda on 10/24/17. My clinical findings support the need for the requested home health care services because: Deconditioned w/ increased weakness High risk of falls I certify that my clinical findings support that this patient is homebound because: Impaired cognitive ability/safety Unsteady gait/balance Migdalia Green MD Oct 24, 2017 10:49
--- NOTE | 2017-10-24 10:53 | HHI.DCPOC ---
Discharge Care Plan Diagnosis: (1) Spinal stenosis Goals to Promote Your Health * To prevent worsening of your condition and complications * To maintain your health at the optimal level Directions to Meet Your Goals Take your medications as prescribed Follow your dietary instruction Follow activity as directed Keep your appointments as scheduled Take your immunizations and boosters as scheduled If your symptoms worsen call your PCP, if no PCP go to Urgent Care Center or Emergency Room Smoking is Dangerous to Your Health. Avoid second hand smoke Call the 24-hour hour crisis hotline for domestic abuse at Migdalia Green MD Oct 24, 2017 10:53
--- NOTE | 2017-10-24 10:54 | HHI.DS ---
Discharge Summary Admission Date Oct 23, 2017 at 10:34 Discharge Date: Oct 24, 2017 Admitting Diagnosis Normal pressure hydrocephalus (1) Falls frequently ICD Code: R29.6 - Repeated falls (2) Seizure ICD Code: R56.9 - Unspecified convulsions (3) Hyponatremia ICD Code: E87.1 - Hypo-osmolality and hyponatremia (4) Leukocytosis ICD Code: D72.829 - Elevated white blood cell count, unspecified (5) Rhabdomyolysis ICD Code: M62.82 - Rhabdomyolysis Procedures none Brief History - From Admission This patient is a 62-year-old gentleman with history of epilepsy who comes to the hospital because he fell at home with some loss of consciousness. He has been dizzy for the last few days and reported some generalized weakness. He came to the emergency room this family was found to have hyponatremia and rhabdomyolysis which appears to improve overnight with hydration intravenously. There have been no recent changes in medications and has been on his antibiotics for several years. He follows around with his primary care doctor. He has not had any chest pain or shortness of breath. He is still quite ataxic. Patient's been recommended for further evaluation due to frequent falls. Initially his CT of the head was concerning for normal pressure hydrocephalus. ER MD however repeat MRI not consistent with this. CBC/BMP: 10/23/17 0445 10/23/17 0445 Significant Findings Laboratory Tests Test 10/22/17 08:20 10/22/17 13:00 10/22/17 13:30 10/22/17 20:30 White Blood Count 11.9 TH/MM3 (4.0-11.0) Neutrophils (%) (Auto) 83.0 % (16.0-70.0) Neutrophils # (Auto) 9.8 TH/MM3 (1.8-7.7) Blood Urea Nitrogen 3 MG/DL (7-18) Sodium Level 129 MEQ/L (136-145) Chloride Level 94 MEQ/L (98-107) Estimat Glomerular Filtration Rate 76 ML/MIN (>89) Urine Osmolality 260 MOSM/KG (300-1300) Test 10/23/17 04:45 10/24/17 06:20 Blood Urea Nitrogen 4 MG/DL (7-18) Sodium Level 133 MEQ/L (136-145) Chloride Level 97 MEQ/L (98-107) Estimat Glomerular Filtration Rate 81 ML/MIN (>89) Total Creatine Kinase 318 U/L (39-308) 343 U/L (39-308) Creatine Kinase MB 5.6 NG/ML (0.5-3.6) 4.8 NG/ML (0.5-3.6) Imaging Last Impressions Thoracic Spine MRI 10/23/17 0000 Signed Impressions: Service Date/Time: Monday, October 23, 2017 13:15 - CONCLUSION: 1. No acute compression fractures or subluxation as questioned. 2. Mild degenerative spondylosis of the thoracic spine most prominently at T7-8 and T11-12 without significant central canal or neural foraminal stenosis. Alfredo Castillo MD Lumbar Spine MRI 10/23/17 0000 Signed Impressions: Service Date/Time: Monday, October 23, 2017 13:15 - CONCLUSION: Significant motion artifact is present in the congenitally small spinal canal Central to right-sided right-sided disc bulge L1-2 Moderate facet disease throughout the spine. Congenitally small spinal canal.. Giorgio Anne MD FACR Cervical Spine MRI 10/23/17 0000 Signed Impressions: Service Date/Time: Monday, October 23, 2017 13:15 - CONCLUSION: Mild spinal stenosis worse at C6-C7.. Giorgio Anne MD FACR Knee X-Ray 10/22/17 0000 Signed Impressions: Service Date/Time: October 12:56 - CONCLUSION: No acute fracture or joint dislocation. Mike Lopez MD Head CT 10/22/17 0000 Signed Impressions: Service Date/Time: October 12:53 - CONCLUSION: 1. No focal or acute intracranial hemorrhage. 2. There is diffuse enlargement of the ventricular system suggestive of hydrocephalus. Normal pressure hydrocephalus would be a consideration. There are no prior studies for comparison. Recommend MRI of the brain for further evaluation. Mike Lopez MD Chest X-Ray 10/22/17 0000 Signed Impressions: Service Date/Time: October 18:52 - CONCLUSION: Bibasilar opacity, possibly atelectasis. No effusion or pneumothorax. Hugh Banda MD Brain MRI 10/22/17 0000 Signed Impressions: Service Date/Time: October 15:57 - CONCLUSION: 1. There is ventricular dilation. There is no evidence of transependymal fluid migration. There is only mild cortical atrophy. Brody Anne MD PE at Discharge left ear bleeding stopped GENERAL: This is a well-nourished, well-developed patient, in no apparent distress. CARDIOVASCULAR: Regular rate and rhythm without murmurs, gallops, or rubs. RESPIRATORY: Clear to auscultation. Breath sounds equal bilaterally. No wheezes , rales, or rhonchi. GASTROINTESTINAL: Abdomen soft, non-tender, nondistended. Normal active bowel sounds MUSCULOSKELETAL: Extremities without clubbing, cyanosis, or edema. NEURO: Alert & Oriented x4 to person, place, time, situation. Moves all ext x4 Pt update on day of discharge See daily progress note Hospital Course Patient was seen and evaluated for weakness. He appears to have chronic spinal stenosis. Patient was seen by neurology. His hyponatremia and rhabdomyolysis improved and patient was discharged home. He did require some wound care to his left ear after traumatic fall. I did speak with both his sister and his brother on the telephone number listed in the chart to explain a plan of care. Pt Condition on Discharge: Good Discharge Disposition: Disch w/ Home Health Serv Discharge Time: <= 30 minutes Discharge Instructions DIET: Follow Instructions for: As Tolerated, No Restrictions Activities you can perform: Regular-No Restrictions Follow up Referrals: PCP Follow-up - 1 Week New Medications: Walker with Front Wheels (Walker with Front Wheels) 1 Mis Mis EA .XX DIRECTED, #1 0 Refills Continued Medications: Aspirin (Aspirin Low Dose) 81 Mg Chew 81 MG PO DAILY, TAB [address] (Divalproex DR) 250 Mg Tabdr 250 MG PO TID for Control Seizures, #60 TAB 0 Refills Gabapentin (Gabapentin) 400 Mg Cap 400 CAP PO TID, #30 CAP 0 Refills Metoprolol Tartrate (Metoprolol Tartrate) 50 Mg Tab 50 MG PO DAILY, #30 TAB 0 Refills Migdalia Green MD Oct 24, 2017 10:54
--- NOTE | 2017-10-24 11:07 | HHI.PR ---
Review/Management Daily Summary 10/24 doing well overall no new cx mri studies seen, no significant ls stenosis to explain claudication will consider emg as outpt ok neuro smith to d/c to rehab Subjective Subjective Comments No acute events reported No headache Active Medications Current Medications Medications (Trade) Dose Ordered Sig/Yanet Route Start Time Stop Time Status Last Admin (NS Flush) 2 ml UNSCH PRN IV FLUSH 10/22/17 18:45 (NS Flush) 2 ml BID IV FLUSH 10/22/17 21:00 10/24/17 08:22 (Tylenol) 650 mg Q4H PRN PO 10/22/17 18:45 (Zofran Inj) 4 mg Q6H PRN IVP 10/22/17 18:45 (Narcan Inj) 0.4 mg UNSCH PRN IV PUSH 10/22/17 18:45 (Aspirin Chew) 81 mg DAILY PO 10/23/17 12:15 10/24/17 08:23 (Depakote Dr) 250 mg TID PO 10/23/17 14:00 10/24/17 08:23 (Neurontin) 400 mg TID PO 10/23/17 13:00 10/24/17 08:23 (Lopressor) 50 mg DAILY PO 10/23/17 12:15 10/24/17 08:23 (Baciguent Oint) 1 applic DAILY TOPICAL 10/24/17 10:00 Sodium Chloride 1,000 ml @ 100 mls/hr Q10H IV 10/24/17 10:00 Allergies Allergies Coded Allergies No Known Allergies (Verified Allergy, Unknown, 10/22/17) Exam I&O / VS Vital Signs Date Time Temp Pulse Resp B/P (MAP) Pulse Ox O2 Delivery O2 Flow Rate FiO2 10/24/17 08:00 77 16 144/73 (96) 94 10/24/17 00:00 96.9 68 20 157/80 (105) 97 10/23/17 20:00 96.8 70 20 151/76 (101) 98 10/23/17 16:00 97.0 84 20 142/77 (98) 96 10/23/17 12:00 96.8 89 20 136/74 (94) 97 Objective Radiology Results Last 48 hours Impressions Thoracic Spine MRI 10/23/17 0000 Signed Impressions: Service Date/Time: Monday, October 23, 2017 13:15 - CONCLUSION: 1. No acute compression fractures or subluxation as questioned. 2. Mild degenerative spondylosis of the thoracic spine most prominently at T7-8 and T11-12 without significant central canal or neural foraminal stenosis. Alfredo Castillo MD Lumbar Spine MRI 10/23/17 0000 Signed Impressions: Service Date/Time: Monday, October 23, 2017 13:15 - CONCLUSION: Significant motion artifact is present in the congenitally small spinal canal Central to right-sided right-sided disc bulge L1-2 Moderate facet disease throughout the spine. Congenitally small spinal canal.. Giorgio Anne MD FACR Cervical Spine MRI 10/23/17 0000 Signed Impressions: Service Date/Time: Monday, October 23, 2017 13:15 - CONCLUSION: Mild spinal stenosis worse at C6-C7.. Giorgio Anne MD FACR [employer] [facility] Laboratory Tests Test 10/24/17 06:20 Total Creatine Kinase 343 Creatine Kinase MB 4.8 Creatine Kinase MB % 1.4 Ghassan Garcia MD Oct 24, 2017 11:07
[2017-10-24 12:00] VITALS: BP 159/69; PULSE 63; RESP 16; TEMP 96.6; O2SAT 96
[2017-10-28 11:07] LABS: METHYLMALONIC ACID 0.12 nmol/mL (<=0.40)
== END 2017-10-24 18:13 | disposition home health service (06) | DRG 558 ==
LOC: PHED 12:13 → PHEDA 18:46 → PH3A 22:28 → OBSVTOIN 10-23 10:34
PROVIDERS: ADMIT Hospitalist; ATTEND Hospitalist
PROC: 09Q1XZZ Repair Left External Ear, External Approach (ICD-10-PCS; principal; 2017-10-22)
DX: M62.82 Rhabdomyolysis (principal); G93.89 Other specified disorders of brain; E87.1 Hypo-osmolality and hyponatremia; I10 Essential (primary) hypertension; G40.909 Epilepsy, unspecified, not intractable, without status epilepticus; S01.312A Laceration without foreign body of left ear, initial encounter; R27.0 Ataxia, unspecified; R29.6 Repeated falls; E86.0 Dehydration; D72.829 Elevated white blood cell count, unspecified; M48.062 Spinal stenosis, lumbar region with neurogenic claudication; G31.9 Degenerative disease of nervous system, unspecified; W18.39XA Other fall on same level, initial encounter; Y92.009 Unspecified place in unspecified non-institutional (private) residence as the place of occurrence of the external cause; Z72.0 Tobacco use
CPT/HCPCS: 70450; 70553; 71046; 72141; 72146; 72148; 73560; 80048; 80164; 81001; 82550; 82552; 82607; 83921; 83930; 83935; 84300; 84425; 84439; 84443; 84484; 85025; 85610; 85652; 85730; 93005; A9579; G8987-GP; G8988-GP; J2060; J2270; J7030